=== PATIENT | female | born 1980 | race Two or more races ===

== ENCOUNTER 2019-01-14 07:41 | Outpatient (CLI) | payer OTHER | END 2019-01-14 07:49 | disposition home or self-care (01) | LOC: MAMO-SONO 07:41 | DX: N64.4 Mastodynia (principal); Z12.31 Encounter for screening mammogram for malignant neoplasm of breast ==

== ENCOUNTER 2022-07-06 22:44 | Emergency (ER) | payer OTHER ==
[~2022-07-06] VITALS: Ht 149.9 cm; Wt 45.4 kg
[2022-07-06] MEDS ORDERED: CANNABIS (23:15)
[2022-07-07] MEDS ORDERED: CEPHALEXIN500 MG PO (02:43)
== END 2022-07-07 03:12 ==
LOC: ER 22:44
DX: S01.01XA Laceration without foreign body of scalp, initial encounter (principal); W19.XXXA Unspecified fall, initial encounter; Y93.9 Activity, unspecified; Y92.019 Unspecified place in single-family (private) house as the place of occurrence of the external cause

== ENCOUNTER 2022-07-16 18:20 | Emergency (ER) | payer OTHER ==
[~2022-07-16] VITALS: Ht 149.9 cm; Wt 46.3 kg
[~2022-07-16 18:20] MED LIST: CANNABIS; CEPHALEXIN500 MG PO
== END 2022-07-16 19:12 | disposition home or self-care (01) ==
LOC: ER 18:20
DX: Z48.02 Encounter for removal of sutures (principal)

== ENCOUNTER 2023-07-18 13:11 | Outpatient (CLI) | payer OTHER | END 2023-07-18 13:20 | disposition home or self-care (01) | LOC: MRI 13:11 | DX: R41.3 Other amnesia (principal) | CPT/HCPCS: 70551 ==

== ENCOUNTER 2023-11-29 19:56 | Emergency (ER) | payer OTHER ==
[~2023-11-29] VITALS: Ht 149.9 cm; Wt 52.2 kg
[2023-11-29] MEDS ORDERED: TETANUS DIPHTHERIA TOX. ADSOR 5 ML VIAL IM ONE (21:39)
[2023-11-29] MEDS ORDERED: LIDOCAINE HCL 1% 10ML VIAL ONE (21:40)
[2023-11-29] MEDS ORDERED: TETANUS & DIPHTHERIA TOX,ADULT 0.5 ML VIAL IM ONE (21:45)
== END 2023-11-30 00:06 | disposition home or self-care (01) ==
LOC: ER 19:57
DX: S61.212A Laceration without foreign body of right middle finger without damage to nail, initial encounter (principal); W31.9XXA Contact with unspecified machinery, initial encounter; Y93.9 Activity, unspecified; Y92.9 Unspecified place or not applicable; Y99.9 Unspecified external cause status

== ENCOUNTER 2023-12-10 18:48 | Emergency (ER) | payer OTHER ==
[~2023-12-10] VITALS: Ht 149.9 cm; Wt 52.2 kg
== END 2023-12-10 19:37 | disposition home or self-care (01) ==
LOC: ER 18:50
DX: Z48.02 Encounter for removal of sutures (principal)

== ENCOUNTER 2024-07-04 10:00 | Outpatient (CLI) | payer OTHER | END 2024-07-04 10:18 | disposition home or self-care (01) | LOC: MAMO-SONO 10:00 | PROVIDERS: ATTEND Family Medicine Addiction Medicine | DX: N64.9 Disorder of breast, unspecified (principal) ==

== ENCOUNTER 2024-12-26 11:38 | Outpatient (CLI) | payer OTHER | END 2024-12-26 11:44 | disposition home or self-care (01) | LOC: RAD 11:38 | PROVIDERS: ATTEND Physical Medicine & Rehabilitation | DX: M54.50 Low back pain, unspecified (principal); M53.3 Sacrococcygeal disorders, not elsewhere classified; M25.511 Pain in right shoulder ==

== ENCOUNTER 2025-01-15 13:44 | Outpatient (CLI) | payer OTHER | END 2025-01-15 13:45 | disposition home or self-care (01) | LOC: MRI 13:44 | PROVIDERS: ATTEND Physical Medicine & Rehabilitation | DX: M25.511 Pain in right shoulder (principal) | CPT/HCPCS: 73221 ==